=== PATIENT | male | born 1960 | race Caucasian/White ===

== ENCOUNTER 2018-04-06 09:52 | Emergency (ER) | payer BC, OTHER ==
[~2018-04-06] VITALS: Ht 172.7 cm; Wt 99.8 kg
[~2018-04-06 09:52] MED LIST: PROBIOTIC & AC1 EACH PO
[2018-04-06] MEDS ORDERED: CYCLOBENZAPRINE10 MG PO (10:14)
[2018-04-06] MEDS ORDERED: PREDNISONE20 MG PO (10:14)
[2018-04-06] MEDS ORDERED: BENEFIBER1 EAC1 PO (10:14)
[2018-04-06] MEDS ORDERED: TYLENOL # 31 EA PO (10:14)
[2018-04-06] MEDS ORDERED: LOSARTAN POTAS100 MG PO (10:14)
[2018-04-06] MEDS ORDERED: HYDROCODONE/APAP 10MG-325MG TAB PO ONE (10:45)
[2018-04-06] MEDS ORDERED: KETOROLAC TROMETHAMINE 60 MG/2 ML VIAL IM ONE (10:45)
--- NOTE | 2018-04-06 11:55 | Diagnostic Imaging Report ---
Examination: CT pelvis without contrast, CT left hip without contrast Technique: Helical axial CT images of the pelvis and left hip and proximal femur were obtained without intravenous contrast per referring physician request. Coronal and sagittal reformatted images were also available for review. Clinical indication: Left hip pain, back pain, groin pain, concern for hip fracture Comparison examination: None available. Findings: Pelvis: Bones: No acute fractures. The pelvis, acetabulum, and proximal femur are intact. Bone island anterior right acetabulum. Multilevel degenerative disc changes and facet arthropathy of the lumbar spine, worst at L5-S1. Mild degenerative changes of the sacroiliac joints right greater than left. Soft tissues: No focal soft tissue abnormalities. Pelvic viscera: The urinary bladder is unremarkable. Coarse left hemiprostatic calcification. Multiple pelvic phleboliths. Multiple diverticula of the partially visualized large bowel without inflammatory changes. Normal appendix. Lymph nodes: No inguinal or pelvic sidewall lymphadenopathy. Vasculature: Limited evaluation without intravenous contrast. The iliac arterial systems are nonaneurysmal. Hip: Bones: No acute left hip fracture. Acetabulum and proximal femur are intact. Mild degenerative osteophytosis along the lateral margin of the acetabulum. Soft tissues: Intact musculature of the left hemipelvis and upper thigh. Impression: No acute abnormalities. No left hip fracture. Signed by: Dr. Karsten Florentino M.D. on 04/06/2018 11:52 AM
== END 2018-04-06 12:25 | disposition home or self-care (01) ==
LOC: ER 09:52
DX: M54.5 Low back pain (principal); M54.16 Radiculopathy, lumbar region; G89.29 Other chronic pain; I10 Essential (primary) hypertension
CPT/HCPCS: 72192; 73700; 99284; J1885

== ENCOUNTER 2018-05-13 10:28 | Observation (INO) | payer BC ==
[2018-05-11 15:54] LABS: BASOPHILS % 0.4 % (0.0-1.0); EOSINOPHILS # (AUTO) 0.1 (0.0-0.4); EOSINOPHILS % 1.3 % (0.0-6.0); HEMATOCRIT 45.2 % (38.2-49.6); HEMOGLOBIN 15.6 g/dL (14.0-18.0); LYMPHOCYTES # (AUTO) 1.8 (1.0-3.2); LYMPHOCYTES % 24.7 % (18.0-39.1); MEAN CORPUSCULAR HEMOGLOBIN 30.2 pg (28-32); MEAN CORPUSCULAR HGB CONC 34.5 g/dL (31-35); MEAN CORPUSCULAR VOLUME 87.6 fL (81-99); MONOCYTES # (AUTO) 0.6 (0.2-0.8); MONOCYTES % 7.4 % (4.4-11.3); NEUTROPHILS # (AUTO) 4.7 (2.1-6.9); NEUTROPHILS % 63.1 % (38.7-80.0); PLATELET COUNT 273 x10e3/uL (140-360); RED BLOOD COUNT 5.16 x10e6/uL (4.3-5.7); RED CELL DISTRIBUTION WIDTH 12.2 % (11.7-14.4)
[2018-05-11 16:09] LABS: INR 0.77; PROTHROMBIN TIME 11.5 seconds (11.9-14.5)
[2018-05-11 16:10] LABS: PARTIAL THROMBOPLASTIN TIME 31.7 seconds (23.8-35.5)
[2018-05-11 16:13] LABS: ANION GAP 15.7 mmol/L (8-16); CALCIUM 9.3 mg/dL (8.4-10.2); CREATININE, SERUM 1.33 mg/dL (0.72-1.25); POTASSIUM 3.7 mmol/L (3.5-5.1)
--- NOTE | 2018-05-11 16:47 | Diagnostic Imaging Report ---
EXAMINATION: PA and lateral views of the chest. COMPARISON: None CLINICAL HISTORY: Preoperative evaluation for back surgery DISCUSSION: Lines/tubes: None. Lungs: The lungs are well inflated and clear. No pneumonia or pulmonary edema. Pleura: No pleural effusion or pneumothorax. Heart and mediastinum: The cardiomediastinal silhouette is normal. Bones and soft tissues: No acute bony abnormalities. IMPRESSION: No acute cardiopulmonary abnormalities. Signed by: Dr. Jac Madsen M.D. on 05/11/2018 4:43 PM
[2018-05-11 17:13] LABS: LYMPHOCYTES % (MANUAL) 20 % (19-48); METAMYELOCYTES % (MANUAL) 2 % (0-0); MONOCYTES % (MANUAL) 10 % (3.4-9.0); NEUTROPHILS % (MANUAL) 68 % (40-74); PLATELET ESTIMATE ADEQUATE; PLATELET MORPHOLOGY COMMENT FEW LARGE; RBC MORPHOLOGY COMMENT NORMAL
[~2018-05-13] VITALS: Ht 172.7 cm; Wt 92.5 kg
[~2018-05-13 10:28] MED LIST changes: +ACETAMINOPHEN 1000 MG/100 ML 100 ML IV ONE; +BENEFIBER1 EAC1 PO; +CYCLOBENZAPRINE10 MG PO; +DICLOFENAC SODI75 MG PO; +LIDOCAINE HCL (LTA) 4 ML SOLN ONE; +LOSARTAN POTAS100 MG PO; +NORCO 5-325 TA1 EACH PO; +PREDNISONE20 MG PO; +TYLENOL # 31 EA PO
--- OUTSIDE RECORDS SUMMARY | 2018-05-13 10:31 | XMS REPORT ---
Author Author [facility] Address Unknown Phone Unavailable Care Team Providers Care Fuller Brush Man Name Role Phone AMANDA CONDE Unavailable Unavailable Wale ZUNIGA Unavailable Unavailable Problems This patient has no known problems. Allergies, Adverse Reactions, Alerts This patient has no known allergies or adverse reactions. Medications This patient has no known medications. Results Test Description Test Time Test Comments Text Results Atomic Results Result Comments CHEST 2 VIEWS 2018-05-11 16:42:00 [place] [address] Patient Name: CARMEN HANEY MR #: [id number] : 1960 Age/Sex: 57/M Req #: [id number] [facility] Physician: Ordered by: AMANDA CONDE MD Report #: [id number] Location: OR Room/Bed: Procedure: [id number] DX/CHEST 2 VIEWS Exam Date: 05/11/18 Exam Time: 1600 REPORT STATUS: Signed EXAMINATION: PA and lateral views of the chest. LAKEISHA RISON: None CLINICAL HISTORY: Preoperative evaluation for back surgery DISCUSSION: Lines/tubes: None. Lungs: The lungs are well inflated and clear. No pneumonia or pulmonary edema. Pleura: No pleural effusion or pneumothorax. Heart and mediastinum: The cardiomediastinal silhouette is normal. Bones and soft tissues: No acute bony abnormalities. IMPRESSION: No acute cardiopulmonary abnormalities. Signed by: Dr. Haleigh Mendes M.D. on 05/11/2018 4:43 PM Dictated By: HALEIGH MENDES MD 42 Transcribed By: IVAN on 05/11/181642 COPY TO: AMANDA CONDE MD CT HIP LEFT WO 2018-04-06 11:38:00 [place] [address] Patient Name: CARMEN HANEY MR #: [id number] : 1960 Age/Sex: 57/M Req #: [id number] Adm Physician: Ordered by: MACKENZIE JOSHUA NP Report #: [id number] Location: ER Room/Bed: Procedure: [id number] CT/CT HIP LEFT WO Exam Date: 04/06/18 Exam Time: 1050 REPORT STATUS: Signed Examination: CT pelvis without contrast, CT left hip without c ontrast Technique: Helical axial CT images of the pelvis and left hip and proximal femur were obtained without intravenous contrast per referring physician request. Coronal and sagittal reformatted images were also available for review. Clinical indication: Left hip pain, back pain, groin pain, concern for hip fracture Comparison examination: None available. Findings: Pelvis: Bones: No acute fractures. The pelvis, acetabulum, and proximal femur are intact. Bone island anterior right acetabulum. Multilevel degenerative disc changes and facet arthropathy of the lumbar spine, worst at L5-S1. Mild degenerative changes of the sacroiliac joints right greater than left. Soft tissues: No focal soft tissue abnormalities. Pelvic viscera: The urinary bladder is unremarkable. Coarse left hemiprostatic calcification. Multiple pelvic phleboliths. Multiple diverticula of the partially visualized large bowel without inflammatory changes. Normal appendix. Lymph nodes: No inguinal or pelvic sidewall lymphadenopathy. Vasculature: Limited evaluation without intravenous contrast. The iliac arterial systems are nonaneurysmal. Hip: Bones: No acute left hip fracture. Acetabulum and proximal femur are intact. Mild degenerative osteophytosis along the lateral margin of the acetabulum. Soft tissues: Intact musculature of the left hemipelvis and upper thigh. Impression: No acute abnormalities. No left hip fracture. Signed by: Dr. Ricardo Hanley M.D. on 04/06/2018 11:52 AM Dictated By: RICARDO HANLEY MD E lectronically Signed By: RICARDO HANLEY MD on 04/06/18 1152 Transcribed By: IVAN on 04/06/18 1152 COPY TO: MACKENZIE JOSHUA NP CT PELVIS WO 2018-04-06 11:38:00 [place] [address] Patient Name: CARMEN HANEY MR #: [id number] : 1960 Age/Sex: 57/M Req #: [id number] Adm Physician: Ordered by: MACKENZIE JOSHUA FABRICATION INSPECTOR Report #: [id number] Location: ER Room/Bed: Procedure: [id number] CT/CT PELVIS WO Exam Date: 04/06/18 Exam Time: 1050 REPORT STATUS: Signed Examination: CT pelvis without contrast, CT left hip without c ontrast Technique: Helical axial CT images of the pelvis and left hip and proximal femur were obtained without intravenous contrast per referring physician request. Coronal and sagittal reformatted images were also available for review. Clinical indication: Left hip pain, back pain, groin pain, concern for hip fracture Comparison examination: None available. Findings: Pelvis: Bones: No acute fractures. The pelvis, acetabulum, and proximal femur are intact. Bone island anterior right acetabulum. Multilevel degenerative disc changes and facet arthropathy of the lumbar spine, worst at L5-S1. Mild degenerative changes of the sacroiliac joints right greater than left. Soft tissues: No focal soft tissue abnormalities. Pelvic viscera: The urinary bladder is unremarkable. Coarse left hemiprostatic calcification. Multiple pelvic phleboliths. Multiple diverticula of the partially visualized large bowel without inflammatory changes. Normal appendix. Lymph nodes: No inguinal or pelvic sidewall lymphadenopathy. Vasculature: Limited evaluation without intravenous contrast. The iliac arterial systems are nonaneurysmal. Hip: Bones: No acute left hip fracture. Acetabulum and proximal femur are intact. Mild degenerative osteophytosis along the lateral margin of the acetabulum. Soft tissues: Intact musculature of the left hemipelvis and upper thigh. Impression: No acute abnormalities. No left hip fracture. Signed by: Dr. Ricardo Hanley M.D. on 04/06/2018 11:52 AM Dictated By: RICARDO HANLEY MD Amber ctronically Signed By: RICARDO HANLEY MD on 04/06/18 1152 Transcribed By: IVAN on 04/06/18 1152 COPY TO: MACKENZIE JOSHUA NP
[2018-05-13] MEDS ORDERED: CEFAZOLIN SOD 2 GM/D5W 50ML 50 ML IV ONE (10:43)
[2018-05-13] MEDS ORDERED: GELATIN SPONGE 12-7MM ONE (11:05)
[2018-05-13] MEDS ORDERED: BUPIVACAINE 0.5%/EPI 30 ML SDV INJ ONE (11:05)
[2018-05-13] MEDS ORDERED: THROMBIN FOR SOLN 5,000 UNIT VIAL ONE (11:05)
[2018-05-13] MEDS ORDERED: BACITRACIN 50,000 UNIT VIAL ONE (11:05)
--- NOTE | 2018-05-13 15:07 | Operative Report ---
DATE OF PROCEDURE: May 13, 2018 PREOPERATIVE DIAGNOSIS: Left L4-5 extraforaminal disk herniation with L4 radiculopathy, M51.16. POSTOPERATIVE DIAGNOSIS: Left L4-5 extraforaminal disk herniation with L4 radiculopathy, M51.16. PROCEDURE: Left L4-5 lateral foraminotomy and microsurgical resection of extraforaminal disk herniation, [address]. ANESTHESIA: General. INDICATIONS: The patient is a 57-year-old man who presents with a left L4-5 extraforaminal disk herniation symptomatic with a left L4 radiculopathy. He was taken to the operating room for microsurgical resection of this extruded disk through a lateral approach. PROCEDURE: After the induction of general anesthesia, the patient was placed on the operating table in prone position over a Clemente frame. The lumbar region was prepped and draped in sterile fashion. A preoperative x-ray was obtained. A small left paramedian incision was created, and the lumbar fascia was opened to the left of midline. This dissection was carried out to expose the lateral margin of the L4 lamina and the region of the pars intra-articularis of L4. A 2nd x-ray confirmed correct localization at L4-5 disk space. An expandable speculum retractor was deployed. The operating microscope was brought in. A high-speed drill equipped with a hiram bur was used to drill the lateral rim of the pars intra-articularis of L4 and the superolateral rim of the inferior articular process of L4, and the lateral extension of the ligamentum flavum over the L4 neural foramen was resected and the L4 nerve root was exposed below the L4 pedicle. The epidural veins inferior to the nerve root were then bipolar coagulated and divided with microscissors. The medial edge of the extruded disk material came into view inferior to the L4 nerve root. A ball probe was passed inferior to the nerve root and directed laterally and used to retrieve the extruded extraforaminal disk. This was then grasped with a micropituitary rongeur and delivered out as a large fragment of disk. This maneuver was repeated a 2nd time, and a very large fragment of disk was retrieved and removed from the extraforaminal compartment, immediately decompressing the L4 nerve root. Meticulous hemostasis was secured with bipolar electrocautery. The wound was irrigated with Bacitracin solution. The lumbar fascia was closed with 0 Vicryl suture. Subcutaneous layer was closed with 2-0 Vicryl suture. The skin was closed with 3-0 Monocryl sutures in a subcuticular fashion. Steri-Strips and a dressing were applied. The patient was awakened and extubated and taken to the postanesthesia care unit in stable condition. No intraoperative complications were encountered. Estimated blood loss was 10 mL. Job#: [id number] EV
[2018-05-13] MEDS: LACTATED RINGER'S 1,000 ML IV SCH (15:22)
[2018-05-13] MEDS ORDERED: ACETAMINOPHEN 325 MG TAB PO PRN (15:30)
[2018-05-13] MEDS ORDERED: ONDANSETRON HCL INJ 2MG/ML 2ML 2 MG/ML VIAL IV PRN (15:30)
[2018-05-13] MEDS ORDERED: HYDROMORPHONE 2MG/ML 2 MG/ML ML IV PRN (15:30)
[2018-05-13] MEDS ORDERED: PROMETHAZINE HCL (IM) 25 MG/ML VIAL IM PRN (15:30)
[2018-05-13] MEDS ORDERED: MORPHINE SULFATE 5 MG/ML VIAL IM PRN (15:30)
[2018-05-13] MEDS ORDERED: CEPACOL SORE THROAT LOZENGES PO PRN (15:30)
[2018-05-13] MEDS ORDERED: CARISOPRODOL 350 MG TAB PO PRN (15:30)
[2018-05-13] MEDS ORDERED: MAGNESIUM/ALUMINUM/SIMETHICONE 30 ML UDC PO PRN (15:30)
--- NOTE | 2018-05-13 15:44 | NUR ---
patient arrived on floor on stretcher. Patient alert and oriented and in no distress.
[2018-05-13 16:00] VITALS: BP 144/80
[2018-05-13 16:03] VITALS: BP 144/80
[2018-05-13] MEDS ORDERED: MORPHINE SULFATE INJ 10 MG/ML IM PRN (16:45)
[2018-05-13] MEDS: OXYCODONE/ACETAMINOPHEN 5-325 1 EACH TABLET PO PRN (17:58)
--- NOTE | 2018-05-13 18:40 | NUR ---
rounded with travograph operator nurse, patient aware of change. Patient in no distress and call rich within reach.
--- NOTE | 2018-05-13 19:00 | NUR ---
received report from day nurse. patient is resting comfortably in bed. bed is in lowest position and call rich is within reach. will continue to monitor patient.
[2018-05-13] MEDS ORDERED: FENTANYL CITRATE/PF 100MCG/2 ML INJ ONE (19:29)
[2018-05-13] MEDS ORDERED: MIDAZOLAM HCL 2 MG/2 ML VIAL ONE (19:29)
[2018-05-13] MEDS ORDERED: DEXAMETHASONE SOD PHOS INJ 4 MG/ML VIAL ONE (19:29)
[2018-05-13] MEDS ORDERED: SEVOFLURANE INHAL SOLN 250 ML PEN BTL ONE (19:29)
[2018-05-13] MEDS ORDERED: LIDOCAINE HCL 2% LOCAL INJ 5 ML SDV VIAL INJ ONE (19:29)
[2018-05-13] MEDS ORDERED: ROCURONIUM BROMIDE 10 MG/ML 5ML VIAL ONE (19:29)
[2018-05-13] MEDS ORDERED: ONDANSETRON HCL INJ 2MG/ML 2ML 2 MG/ML VIAL ONE (19:29)
[2018-05-13] MEDS ORDERED: PROPOFOL IV EMULSION 10 MG/ML 20 ML VIAL ONE (19:29)
[2018-05-13 20:00] VITALS: BP 137/99
[2018-05-13] MEDS ORDERED: ZOLPIDEM TARTRATE 5 MG TAB PO PRN (21:00)
[2018-05-13] MEDS: CEFAZOLIN SOD 1 GM/D5W 50ML 50 ML IV SCH (21:38)
[2018-05-14] VITALS: BP 102/62
[2018-05-14 04:00] VITALS: BP 101/65
[2018-05-14] MEDS: CEFAZOLIN SOD 1 GM/D5W 50ML 50 ML IV SCH ×2 (05:03→13:39)
[2018-05-14] MEDS: LACTATED RINGER'S 1,000 ML IV SCH ×2 (05:03→08:02)
--- NOTE | 2018-05-14 06:55 | NUR ---
report given to day nurse. patient is resting comfortably in bed. bed is in lowest position and call light is within reach.
--- NOTE | 2018-05-14 07:36 | NUR ---
Handoff report rec'd from outgoing night court magistrate nurse. Pt AOx3, able to verbalize needs. IVF infusing, disconnected and d/c'd because pt tolerating PO food. POC discussed. Safety measures intact. Call light in reach.
[2018-05-14 08:00] VITALS: BP 118/74
[2018-05-14] MEDS ORDERED: LOSARTAN POTASSIUM 100 MG TAB PO SCH (09:00)
[2018-05-14 09:11] VITALS: BP 118/74
--- NOTE | 2018-05-14 09:52 | NUR ---
SOCIAL WORK INITIAL ASSESSMENT Cellar Pumper to bedside to discuss plan of care with patient/family. CM/SW role and care transitions discussed. Anticipated discharge plan discussed along with duration of care. CM/SW discussed patients right to make decisions in care. CM/SW work hours given. Patient lives: IN HOUSE WITH FAMILY Admit/Transfer: VIA ED FROM HOME POA/Emergency contact: RAFA HANEY [phone] Current/Previous Home Health: NONE PCP/Follow-up Care: JUAN Current/Previous DME: NONE Other Services: NONE Employment Status: [employer] Areas of Concerns: NONE Referral Needs: NONE Education Needs: NONE IMM/GARRETT given and signed (if applicable): NA Goal for discharge: RETURN HOME INDEPENDENTLY CM/SW left business card at the bedside with contact information. Name and number was also written on the patients whiteboard. Patient verbalized understanding of discussion. CM will follow-up with ongoing discharge and transition of care needs.
[2018-05-14 12:12] VITALS: BP 119/74
[2018-05-14] MEDS: OXYCODONE/ACETAMINOPHEN 5-325 1 EACH TABLET PO PRN (13:39)
--- NOTE | 2018-05-14 15:10 | NUR ---
Discharge instructions given verbally and written to the patient and spouse. Patient and spouse verbalized understanding. Discharge Rx given to patient; explained purpose and side effects of medications. Patient verbalized understanding. Surgical dressing removed per MD order. IV removed with tip intact, dressing applied. All personal belongings packed up.
--- NOTE | 2018-05-14 15:45 | NUR ---
Pt escorted to personal vehicle in stable condition, neuro intact, with all personal belongings via wheel chair.
== END 2018-05-14 15:45 | disposition home or self-care (01) ==
LOC: OR 10:28 → PACU V 15:22 → IMCU 15:54
PROVIDERS: ADMIT Neurological Surgery; ATTEND Neurological Surgery
DX: M51.16 Intervertebral disc disorders with radiculopathy, lumbar region (principal); I10 Essential (primary) hypertension; F41.9 Anxiety disorder, unspecified; Z01.810 Encounter for preprocedural cardiovascular examination; Z01.812 Encounter for preprocedural laboratory examination; Z01.811 Encounter for preprocedural respiratory examination
CPT/HCPCS: 36415; 63056; 71046; 72020; 80048; 85025; 85610; 85730; 86850; 86900; 88304; 93005; 96361; G0378 ×2; J0131; J0690 ×3; J1100; J1170; J2001; J2250; J2405; J2704; J7120; J2270; J7121